=== PATIENT | male | born 1950 | race Caucasian/White ===

== ENCOUNTER 2017-11-08 09:52 | Inpatient (IN) ==
[2017-11-08] MEDS ORDERED: Chlorhexidine Gluconate 2% 1 Pack (2 Cloths) TOPICAL SCH (10:30)
[2017-11-08] MEDS ORDERED: Metoprolol Tartrate 25 MG Tablet PO SCH (10:30)
[2017-11-08] MEDS ORDERED: Ropivacaine 0.5% PF Inj 20 ML Vial ONE (10:31)
[2017-11-08] MEDS ORDERED: ceFAZolin 2 GM Premix Inj 2 GM/100 ML BAG IV.SIG SCH (11:00)
[2017-11-08] MEDS ORDERED: Sodium Chlor 0.9% Inj 500 ML IV.SIG SCH (11:00)
[2017-11-08] MEDS ORDERED: Neostigmine Inj 5 MG/5 ML Syringe IV.PUSH ONE (12:00)
[2017-11-08] MEDS ORDERED: Glycopyrrolate Inj 1 MG/5 ML Syringe IV.PUSH ONE (12:00)
[2017-11-08] MEDS ORDERED: Lidocaine PF 1% Inj 5 ML Syringe INFILTRATN ONE (12:00)
[2017-11-08] MEDS: Bupivacaine/Epinephrine Inj 0.25% 50 ML Vial ONE ×2 (14:07→19:34)
[2017-11-08] MEDS ORDERED: Naloxone Inj 0.4 MG/ML Vial IV.PUSH PRN (16:23)
--- NOTE | 2017-11-08 16:23 | P.OP ---
- Preoperative Diagnosis (1) Umbilical hernia (2) Bilateral inguinal hernia - Postoperative Diagnosis (1) Diastasis recti (2) Bilateral inguinal hernia (3) Umbilical hernia Date of procedure: 11/08/17 Procedure: Laparoscopic repair bilateral inguinal hernia with mesh Open repair diastases recti with open repair umbilical hernia, modified separation of components with placement of T IGR mesh 10 x 15 cm Implants: T IGR mesh diastases recti Atrium Prolite mesh bilateral groin Anesthesia: GETA Surgeon: Pedro Robbins MD Chemical Dependency Therapist: ARELY Urbina Estimated blood loss (mL): 25 Pathology: none sent Operation and Findings: Patient was identified as Theodore Issa, taken to the operating room, placed in a supine position. Sequential compression device were placed on bilateral lower extremities. Following induction of adequate general endotracheal anesthesia the patient's abdomen was prepped and draped in usual sterile fashion with Betadine. A timeout procedure was performed. Following completion timeout procedure everyone's satisfaction within the room local anesthetic was infiltrated below the umbilicus. A 2 cm transverse incision was carried out with scalpel dissection continued posteriorly to the level of the into rectus fascia in the left side. The preperitoneal plane was developed the surgeon's finger posterior the rectus muscle directed towards the pubic symphysis. Preperitoneal dissecting balloon was placed in preperitoneal space and with the patient in slight Trendelenburg position, the balloon was insufflated to a total of approximately 35 pumps under direct laparoscopic view. The balloon was desufflated removed and the structural balloon trocar placed in preperitoneal space its balloon inflated to 2 insufflation to level of 11 mmHg ensued. 2 of her umbilical midline 5 mm trochars were placed in the preperitoneal space under direct laparoscopic view after incision and skin with a scalpel. Attention was turned to the left side up. Unfortunately the inferior epigastric vessels were dissected free from the anterior rectus muscle and were hanging in the way. This may dissection slightly more cumbersome. Using blunt graspers blunt dissection lateral and posterior the spermatic cord was performed. Posterior lateral surface of spermatic cord was covered with a large spermatic cord lipoma. Large amount of fatty tissue was withdrawn from the inguinal canal into the preperitoneal space. Anteromedial surface was examined there was no evidence of indirect inguinal hernia sac. There is no evidence of direct or femoral hernia. A 4 x 6" piece of atrium Prolite mesh was cut with an anterolateral slit placed around the spermatic cord intact position with the tacking device. Tack was used to approximate the anterolateral slit and on the inferior lateral Bryan's ligament. A 2 x 6" piece of the mesh was placed across the anterolateral slit and help position placing tacks superior lateral inferior medial and superior medial. Photograph was taken the completed repair. Attention was turned to the right side. Similar blunt dissection was performed. There was a small spermatic cord lipoma was withdrawn from the inguinal canal on the right side. Adherent peritoneum was reduced at the base of the spermatic cord. There is no evidence of direct or femoral hernia defect. A 4 x 6" piece of atrium Prolite mesh with an anterior lateral slit was placed surrounding the spermatic cord intact position as had been done on the left side. Similarly, a 2 x 6" piece the mesh was placed across the anterolateral slit and help position with tacks placed superior lateral inferior medial and superior medial. Photographs taken to complete a repair. Care was taken to avoid tach placement inferior laterally to avoid cutaneous nerve injury. Photograph of completed repairs on both sides have been performed. A small bruise along Bryan's ligament on the left side was controlled with electrocautery. 1 g of Kevin absorbable he was placed in the preperitoneal space. Trochars removed under direct visualization was notes a bleeding from trocar sites. Preperitoneal space was desufflated through the infraumbilical port which was then removed. Infra umbilical fascial incision was closed with a running 2-0 Vicryl suture. Attention was then turned to repair of the diastases recti. Her proposed upper midline incision from the xiphoid process to above the umbilicus was carried out with a marking pen. The patient had undergone a preoperative DTaP block by anesthesia and therefore no additional local anesthetic was used. Incision was carried out the scalpel and hemostasis control electrocautery. Dissection continued posteriorly to the midline fascia. Subcutaneous fatty tissue was then dissected free of the fascia to the lateral edge of the rectus muscle on both sides. Starting one side than the other the components of the abdominal wall were the posterior fashion peritoneum from the rectus muscle on both sides. There was about a 6 cm gap between the edges of the rectus muscle and this thinned linea alba was imbricated with a running #1 single-stranded PDS suture. A 10 x 15 piece of T IGR mesh was selected to be placed in the retrorectus position. It was sutured in place at the 12 and 6:00 positions with interrupted 2-0 PDS sutures. 2-0 PDS was placed at the 3 and 9 o'clock position to make the mesh taut. 2-0 PDS stay sutures were then placed between the 9 and 12:00 3 and 6:00 12 and 3:00 and 6 and 9:00 positions. The mesh was taut and broadly covered the imbricated diastases recti thinned linea alba. Irrigation ensued there is no evidence of bleeding. Attention was then turned to mobilization of the anterior rectus fascia on both sides of. This allowed for primary closure at the midline of the into rectus fascia and the underlying rectus muscle. The subcutaneous fatty tissue was then quilted into position to close the space with multiple interrupted 2-0 Vicryl sutures. 2-0 Vicryl sutures were used to approximate subcutaneous fatty tissue at the midline. Skin incisions were all approximated for Monocryl subcuticular sutures. The umbilicus was reformed and its normal inward projection with 2 interrupted 2-0 Vicryl sutures. Direct inferior 5 mm trocar incision sites were proximal covered with Mastisol and half-inch brown Steri-Strips. A anju dressing was used to cover the upper midline incision in the infraumbilical incision with a 4 x 4 folded in the umbilicus. Anju dressing was connected to suction there is no evidence of leak. The patient tolerated the procedures without apparent complication. Sponge needle and instrument counts were correct at the end of the case. Patient was transported to PACU in stable condition.
[2017-11-08] MEDS ORDERED: Post-op Orders (for Pharmacy) OTHER ONE (16:25)
[2017-11-08] MEDS ORDERED: fentaNYL Citrate Inj 100 MCG/2 ML Ampul ONE (16:38)
[2017-11-08] MEDS ORDERED: *Meperidine Inj 25 MG/ML Vial PERIprocedural Use ONLY ONE (17:07)
[2017-11-08] MEDS: Morphine Inj 4 MG/ML Vial IV.PUSH PRN ×2 (17:50→21:34)
[2017-11-08] MEDS: Senna/Docusate Sodium 8.6/50 MG Tablet PO SCH (20:37)
[2017-11-09] MEDS: Morphine Inj 4 MG/ML Vial IV.PUSH PRN ×6 (00:32→20:08)
[2017-11-09] MEDS: Senna/Docusate Sodium 8.6/50 MG Tablet PO SCH ×2 (09:50→20:08)
[2017-11-09] MEDS: Pantoprazole Sodium 20 MG DR Tablet PO SCH (10:14)
--- NOTE | 2017-11-09 14:27 | P.PNGS ---
Subjective Patient reports: feels better (Belching only not passing flatus or having a bowel movement yet. His pain is well-controlled with pain pills and intermittent IV medications. He has been up to the bathroom and emptied his bladder without difficulty. He sticking primarily with the liquids because his throat still sore from intubation.) Physical Exam Vital signs: Vital Signs 11/08/17 16:25 11/08/17 16:30 11/08/17 16:45 Temperature 98.5 F Pulse Rate 86 77 71 Respiratory Rate 20 20 20 Blood Pressure 179/99 H 130/80 124/73 Pulse Oximetry 11/08/17 17:00 11/08/17 18:24 11/08/17 20:00 Temperature 97.4 F L Pulse Rate 61 86 83 Respiratory Rate 20 20 20 Blood Pressure 126/76 131/78 136/81 Pulse Oximetry 95 11/08/17 21:39 11/09/17 00:00 11/09/17 04:00 Temperature 97.4 F L 98 F Pulse Rate 83 83 Respiratory Rate 18 18 20 Blood Pressure 143/82 H 143/90 H Pulse Oximetry 96 94 L 11/09/17 07:57 11/09/17 08:00 11/09/17 10:05 Temperature 97.8 F Pulse Rate 83 Respiratory Rate 17 Blood Pressure 146/87 H Pulse Oximetry 96 94 L 94 L 11/09/17 12:00 Temperature 98.1 F Pulse Rate 78 Respiratory Rate 19 Blood Pressure 156/92 H Pulse Oximetry 91 L Intake & Output 11/08/17 11/09/17 11/09/17 18:59 06:59 18:59 Intake Total 1300 / 1300 4160 / 4160 100 / 100 Output Total 725 / 725 625 / 625 Balance 1300 / 1300 3435 / 3435 -525 / -525 Weight 93.7 kg 98.1 kg Intake: IV 1300 / 1300 1200 / 1200 100 / 100 LR 1000 mL Inj 1,000 ML @ 70 1000 / 1000 mls/hr IV.CONT .[id number] YULISA Rx# :[id number] Ofirmev Inj 1,000 mg In 100 ml 100 / 100 200 / 200 100 / 100 @ 400 mls/hr IV.SIG Q6H YULISA Rx# :[id number] LR 1000 mL Inj 1,000 ML @ 30 1000 / 1000 mls/hr IV.SIG .Q24H YULISA Rx#: [id number] Ancef 2 GM Premix Inj 2 gm In 100 / 100 100 ml @ 100 mls/hr IV.SIG [employer] [facility] Rx#:[id number] Flagyl 500 MG Inj 100 ML @ 100 100 / 100 mls/hr IV.SIG [employer] [facility] Rx#: [id number] Oral 960 / 960 Anesthesia Amount 1999 Output: Urine 700 / 700 625 / 625 Estimated Blood Loss 25 / 25 Other: Date of Last Bowel Movement 11/08/17 11/07/17 Weight On Admission 93.7 kg Narrative: His lung sounds are clear to auscultation bilaterally. His heart sounds are regular without murmur rub or gallop. His abdomen is mildly protuberant yet soft. There are few bowel sounds. The PIC O dressing is intact with minimal dried bloody drainage. Inferiorly the midline Steri-Strips are intact without significant drainage. He has no tenderness to palpation. His extremities are nonedematous. Assessment and Plan - Assessment (1) Umbilical hernia Code(s): K42.9 - Umbilical hernia without obstruction or gangrene Status: Acute (2) Bilateral inguinal hernia Code(s): K40.20 - Bilateral inguinal hernia, without obstruction or gangrene, not specified as recurrent Status: Acute (3) Diastasis recti Code(s): M62.08 - Separation of muscle (nontraumatic), other site Status: Acute - Plan Postop day 1 status post laparoscopic repair bilateral inguinal hernia with mesh , open repair symptomatic diastases recti with component separation and retrorectus mesh, repair umbilical hernia. Patient has adequate pain control. He wants to continue IV fluids for now as he is not able to eat as much as he would like. He has not passed flatus or had a bowel movement yet. He just started stool softeners today. Milk of magnesia was ordered if he needs it. As soon as he is able to eat and drink and tolerate pain medicine by mouth and have flatus and/or bowel movement he could be discharged, as soon as tomorrow, potentially Saturday.
[2017-11-09] MEDS ORDERED: Enoxaparin Inj 40 MG/0.4 ML Syringe SQ SCH (16:00)
--- NOTE | 2017-11-09 19:07 | ECG ---
Date Performed: 11/08/2017 Time Performed: 10:25:32 PTAGE: 67 years EKG: Sinus rhythm BORDERLINE LEFT AXIS DEVIATION BORDERLINE ECG INJURY CANNOT BE EXCLUDED ON THIS TRACING. Clinical co rrelation is recommended. NO PREVIOUS TRACING DOCTOR: Dominik Cordero Interpretating Date/Time 11/09/2017 19:07:18
[2017-11-10] MEDS: Morphine Inj 4 MG/ML Vial IV.PUSH PRN (08:55)
[2017-11-10] MEDS: Pantoprazole Sodium 20 MG DR Tablet PO SCH (08:55)
[2017-11-10] MEDS: Senna/Docusate Sodium 8.6/50 MG Tablet PO SCH (08:55)
--- NOTE | 2017-11-10 13:23 | P.PNGS ---
Subjective Patient reports: feels better, tolerating a regular diet, flatus, bowel movement Physical Exam Vital signs: Vital Signs 11/09/17 16:00 11/09/17 16:02 11/09/17 20:00 Temperature 98.0 F 98.3 F Pulse Rate 83 93 H Respiratory Rate 17 18 Blood Pressure 163/90 H 143/84 H Pulse Oximetry 93 L 94 L 93 L 11/09/17 23:49 11/10/17 00:38 11/10/17 00:43 Temperature 97.6 F Pulse Rate 92 H Respiratory Rate 20 20 20 Blood Pressure 163/87 H Pulse Oximetry 92 L 11/10/17 01:10 11/10/17 04:00 11/10/17 06:25 Temperature 98.6 F Pulse Rate 94 H Respiratory Rate 20 20 20 Blood Pressure 152/86 H Pulse Oximetry 94 L 11/10/17 07:13 11/10/17 08:00 Temperature 98.2 F Pulse Rate 90 Respiratory Rate 20 17 Blood Pressure 159/83 H Pulse Oximetry 92 L Intake & Output 11/09/17 11/10/17 11/10/17 18:59 06:59 18:59 Intake Total 640 / 640 1000 / 1000 1000 / 1000 Output Total 625 / 625 Balance 15 / 15 1000 / 1000 1000 / 1000 Weight 97.1 kg Intake: IV 100 / 100 1000 / 1000 1000 / 1000 LR 1000 mL Inj 1,000 ML @ 70 1000 / 1000 1000 / 1000 mls/hr IV.CONT .[id number] YULISA Rx# :[id number] Ofirmev Inj 1,000 mg In 100 ml 100 / 100 @ 400 mls/hr IV.SIG Q6H YULISA Rx# :[id number] Oral 540 / 540 Output: Urine 625 / 625 Other: # Voids 4 2 Date of Last Bowel Movement 11/07/17 11/07/17 # Bowel Movements 0 Narrative: Patient walking in the room There are few bowel sounds. The PIC O dressing is intact with minimal dried bloody drainage. He has no tenderness to palpation. Base of penis and scrotum swollen His extremities are nonedematous. Assessment and Plan - Assessment (1) Umbilical hernia Code(s): K42.9 - Umbilical hernia without obstruction or gangrene Status: Acute (2) Bilateral inguinal hernia Code(s): K40.20 - Bilateral inguinal hernia, without obstruction or gangrene, not specified as recurrent Status: Acute (3) Diastasis recti Code(s): M62.08 - Separation of muscle (nontraumatic), other site Status: Acute - Plan Postop day 2 status post laparoscopic repair bilateral inguinal hernia with mesh , open repair symptomatic diastases recti with component separation and retrorectus mesh, repair umbilical hernia. Patient has adequate pain control. Patient would like to go home today he thinks he is going to do fine
== END 2017-11-10 14:42 | disposition home or self-care (01) ==
LOC: HSDC 09:52 → HSDI 16:49 → N07 18:33
PROVIDERS: ADMIT Surgery Trauma Surgery; ATTEND Surgery Trauma Surgery